=== PATIENT | female | born 1930 | race Caucasian/White ===

== ENCOUNTER 2021-07-02 10:21 | Inpatient (IN) | payer MEDICARE, MEDICAID, OTHER ==
[2021-07-02] MEDS ORDERED: Sodium Chloride 0.9% 2.5 ML Syringe FLUSH PRN ×2 (10:32→16:22)
[2021-07-02] MEDS ORDERED: Sodium Chloride 0.9% 10 ML Syringe FLUSH PRN ×2 (10:32→16:22)
[2021-07-02] MEDS ORDERED: Acetaminophen 1,000 MG in Premix Bag 1 BAG IV ONE (10:51)
[2021-07-02] MEDS ORDERED: Sodium Chloride 0.9% 1,000 ML IV ONE (10:52)
[2021-07-02] MEDS ORDERED: methylPREDNISolone Sodium Succinate 125 MG/2 ML SDV IVPUSH ONE (10:53)
[2021-07-02] MEDS ORDERED: Albuterol/Ipratropium 3.0-0.5 MG/3 ML Neb Soln NEB ONE (10:53)
[2021-07-02] MEDS ORDERED: Acetaminophen 650 MG Supp RECTAL ONE (11:14)
[2021-07-02 11:24] LABS: CARBON DIOXIDE,CO2 29.2 mmol/L (21.0-32.0)
[2021-07-02] MEDS ORDERED: Ampicillin/Sulbactam Na 3 GM in Sodium Chloride 0.9% 100 ML IV ONE ×2 (11:32→11:39)
[2021-07-02 11:33] LABS: CORONAVIRUS COVID-19 NAA POSITIVE (NEGATIVE); INFLUENZA A NAA NEGATIVE (NEGATIVE); INFLUENZA B NAA NEGATIVE (NEGATIVE)
[2021-07-02] MEDS ORDERED: Azithromycin 500 MG in Sodium Chloride 0.9% 250 ML IV SCH (11:45)
[2021-07-02] MEDS ORDERED: Iopamidol 755 MG/ML 500 ML Multipack Bottle IVPUSH ONE (13:04)
[2021-07-02] MEDS ORDERED: Albuterol/Ipratropium 3.0-0.5 MG/3 ML Neb Soln NEB PRN (16:21)
[2021-07-02] MEDS ORDERED: Docusate Sodium 100 MG Cap PO PRN (16:30)
[2021-07-02] MEDS ORDERED: Benzonatate 100 MG Cap PO PRN (16:30)
[2021-07-02] MEDS ORDERED: guaiFENesin 100 MG/5 ML Soln 5 ML UD Cup PO PRN (16:30)
[2021-07-02] MEDS ORDERED: Ondansetron 4 MG/2 ML SDV IVPUSH PRN (16:30)
[2021-07-02] MEDS ORDERED: REMDESIVIR 200 MG in Sodium Chloride 0.9% 250 ML IV ONE (16:45)
[2021-07-02] MEDS: Heparin Sodium 5,000 Units/ML Vial SUBCUT SCH (17:15)
[2021-07-02] MEDS: cefTRIAXone 1 GM in Sodium Chloride 0.9% 50 ML IV SCH (18:24)
[2021-07-03] MEDS: Heparin Sodium 5,000 Units/ML Vial SUBCUT SCH ×3 (00:45→17:10)
[2021-07-03 06:53] LABS: CARBON DIOXIDE,CO2 25.8 mmol/L (21.0-32.0); POTASSIUM,K 3.5 mmol/L (3.5-5.1)
[2021-07-03] MEDS: Pantoprazole 40 MG Tab.CR PO SCH (06:57)
[2021-07-03] MEDS: Azithromycin 500 MG in Sodium Chloride 0.9% 250 ML IV SCH (09:03)
[2021-07-03] MEDS: Dexamethasone 4 MG Tab PO SCH (09:04)
[2021-07-03] MEDS: Acetaminophen 325 MG Tab PO PRN (11:35)
[2021-07-03] MEDS: Fluticasone/Umeclidin/Vilanter [Trelegy Ellipta 200-62.5-25] INH SCH (15:08)
[2021-07-03] MEDS: REMDESIVIR 100 MG in Sodium Chloride 0.9% 100 ML IV SCH (17:09)
[2021-07-03] MEDS: cefTRIAXone 1 GM in Sodium Chloride 0.9% 50 ML IV SCH (18:11)
[2021-07-04] MEDS: Heparin Sodium 5,000 Units/ML Vial SUBCUT SCH ×3 (01:00→17:05)
[2021-07-04] MEDS: Pantoprazole 40 MG Tab.CR PO SCH ×2 (06:15→06:34)
[2021-07-04 06:37] LABS: BLOOD UREA NITROGEN,BUN 31 mg/dL (7.0-18.0); CARBON DIOXIDE,CO2 25.1 mmol/L (21.0-32.0); CHLORIDE,CL 104 mmol/L (98-107); GLUCOSE RANDOM 85 mg/dL (74-106); POTASSIUM,K 4.2 mmol/L (3.5-5.1); SODIUM,NA 139 mmol/L (136-145)
[2021-07-04] MEDS: Dexamethasone 4 MG Tab PO SCH (08:34)
[2021-07-04] MEDS: Fluticasone/Umeclidin/Vilanter [Trelegy Ellipta 200-62.5-25] INH SCH (08:36)
[2021-07-04] MEDS: Azithromycin 500 MG in Sodium Chloride 0.9% 250 ML IV SCH (08:37)
[2021-07-04] MEDS ORDERED: TRELEGY ELLIPTA INH SCH (09:00)
[2021-07-04] MEDS: Acetaminophen 325 MG Tab PO PRN (10:58)
[2021-07-04] MEDS: REMDESIVIR 100 MG in Sodium Chloride 0.9% 100 ML IV SCH (17:05)
[2021-07-04] MEDS: cefTRIAXone 1 GM in Sodium Chloride 0.9% 50 ML IV SCH (18:24)
[2021-07-05] MEDS: Heparin Sodium 5,000 Units/ML Vial SUBCUT SCH ×3 (00:50→17:17)
[2021-07-05] MEDS: Pantoprazole 40 MG Tab.CR PO SCH ×2 (06:11→07:41)
[2021-07-05 07:16] LABS: BLOOD UREA NITROGEN,BUN 27 mg/dL (7.0-18.0); CARBON DIOXIDE,CO2 20.8 mmol/L (21.0-32.0); CHLORIDE,CL 103 mmol/L (98-107); GLUCOSE RANDOM 72 mg/dL (74-106); POTASSIUM,K 4.1 mmol/L (3.5-5.1); SODIUM,NA 137 mmol/L (136-145)
[2021-07-05] MEDS: Dexamethasone 4 MG Tab PO SCH (08:54)
[2021-07-05] MEDS: Azithromycin 500 MG in Sodium Chloride 0.9% 250 ML IV SCH (08:54)
[2021-07-05] MEDS: Fluticasone/Umeclidin/Vilanter [Trelegy Ellipta 200-62.5-25] INH SCH (08:55)
[2021-07-05] MEDS: REMDESIVIR 100 MG in Sodium Chloride 0.9% 100 ML IV SCH (17:17)
[2021-07-05] MEDS: cefTRIAXone 1 GM in Sodium Chloride 0.9% 50 ML IV SCH (18:43)
[2021-07-06] MEDS: Heparin Sodium 5,000 Units/ML Vial SUBCUT SCH ×3 (00:12→16:25)
[2021-07-06] MEDS: Pantoprazole 40 MG Tab.CR PO SCH ×2 (06:05→06:35)
[2021-07-06 06:44] LABS: CARBON DIOXIDE,CO2 25.6 mmol/L (21.0-32.0); POTASSIUM,K 3.7 mmol/L (3.5-5.1)
[2021-07-06] MEDS: Dexamethasone 4 MG Tab PO SCH (08:51)
[2021-07-06] MEDS: Fluticasone/Umeclidin/Vilanter [Trelegy Ellipta 200-62.5-25] INH SCH (08:53)
[2021-07-06] MEDS ORDERED: Azithromycin 250 MG Tab PO SCH (09:00)
[2021-07-06] MEDS: REMDESIVIR 100 MG in Sodium Chloride 0.9% 100 ML IV SCH (16:25)
[2021-07-06] MEDS: cefTRIAXone 1 GM in Sodium Chloride 0.9% 50 ML IV SCH (18:38)
[2021-07-07] MEDS: Heparin Sodium 5,000 Units/ML Vial SUBCUT SCH ×3 (00:25→17:12)
[2021-07-07] MEDS: Pantoprazole 40 MG Tab.CR PO SCH ×2 (06:06→08:31)
[2021-07-07 07:21] LABS: BLOOD UREA NITROGEN,BUN 22 mg/dL (7.0-18.0); CARBON DIOXIDE,CO2 23.7 mmol/L (21.0-32.0); CHLORIDE,CL 103 mmol/L (98-107); GLUCOSE RANDOM 81 mg/dL (74-106); POTASSIUM,K 3.7 mmol/L (3.5-5.1); SODIUM,NA 137 mmol/L (136-145)
[2021-07-07] MEDS: Dexamethasone 4 MG Tab PO SCH (08:26)
[2021-07-07] MEDS: Fluticasone/Umeclidin/Vilanter [Trelegy Ellipta 200-62.5-25] INH SCH (08:38)
[2021-07-08] MEDS: Heparin Sodium 5,000 Units/ML Vial SUBCUT SCH ×4 (00:10→23:54)
[2021-07-08] MEDS: Pantoprazole 40 MG Tab.CR PO SCH ×2 (06:12→07:32)
[2021-07-08] MEDS: Dexamethasone 4 MG Tab PO SCH (09:11)
[2021-07-08] MEDS: Fluticasone/Umeclidin/Vilanter [Trelegy Ellipta 200-62.5-25] INH SCH (09:12)
[2021-07-09 06:24] LABS: CARBON DIOXIDE,CO2 29.5 mmol/L (21.0-32.0)
[2021-07-09] MEDS: Pantoprazole 40 MG Tab.CR PO SCH (06:39)
[2021-07-09] MEDS: Heparin Sodium 5,000 Units/ML Vial SUBCUT SCH ×3 (08:07→23:35)
[2021-07-09] MEDS: Dexamethasone 4 MG Tab PO SCH (08:08)
[2021-07-09] MEDS: Fluticasone/Umeclidin/Vilanter [Trelegy Ellipta 200-62.5-25] INH SCH (08:09)
[2021-07-10] MEDS: Pantoprazole 40 MG Tab.CR PO SCH (06:43)
[2021-07-10] MEDS: Dexamethasone 4 MG Tab PO SCH (08:26)
[2021-07-10] MEDS: Fluticasone/Umeclidin/Vilanter [Trelegy Ellipta 200-62.5-25] INH SCH (08:27)
[2021-07-10] MEDS: Heparin Sodium 5,000 Units/ML Vial SUBCUT SCH ×2 (08:27→16:42)
[2021-07-11] MEDS: Heparin Sodium 5,000 Units/ML Vial SUBCUT SCH ×3 (00:09→16:01)
[2021-07-11] MEDS: Pantoprazole 40 MG Tab.CR PO SCH (06:36)
[2021-07-11] MEDS: Acetaminophen 325 MG Tab PO PRN (08:37)
[2021-07-11] MEDS: Dexamethasone 4 MG Tab PO SCH (08:38)
[2021-07-11] MEDS: Fluticasone/Umeclidin/Vilanter [Trelegy Ellipta 200-62.5-25] INH SCH (09:29)
[2021-07-12] MEDS: Heparin Sodium 5,000 Units/ML Vial SUBCUT SCH ×3 (00:59→16:53)
[2021-07-12] MEDS: Pantoprazole 40 MG Tab.CR PO SCH ×2 (06:07→07:14)
[2021-07-12] MEDS: Fluticasone/Umeclidin/Vilanter [Trelegy Ellipta 200-62.5-25] INH SCH (08:54)
[2021-07-13] MEDS: Heparin Sodium 5,000 Units/ML Vial SUBCUT SCH ×3 (00:21→17:11)
[2021-07-13] MEDS: Pantoprazole 40 MG Tab.CR PO SCH (06:31)
[2021-07-13] MEDS: Fluticasone/Umeclidin/Vilanter [Trelegy Ellipta 200-62.5-25] INH SCH (08:43)
[2021-07-14] MEDS: Heparin Sodium 5,000 Units/ML Vial SUBCUT SCH ×2 (00:30→08:15)
[2021-07-14] MEDS: Pantoprazole 40 MG Tab.CR PO SCH ×2 (06:08→07:52)
[2021-07-14] MEDS: Fluticasone/Umeclidin/Vilanter [Trelegy Ellipta 200-62.5-25] INH SCH (08:20)
[2021-07-14] MEDS: Acetaminophen 325 MG Tab PO PRN (09:46)
== END 2021-07-14 12:30 | disposition home or self-care (01) | DRG 177 ==
LOC: MW.ED 10:21 → MW.MS 15:14
PROVIDERS: ADMIT Student in an Organized Health Care Education/Training Program; ATTEND Student in an Organized Health Care Education/Training Program
PROC: XW033E5 Introduction of Remdesivir Anti-infective into Peripheral Vein, Percutaneous Approach, New Technology Group 5 (ICD-10-PCS; principal; 2021-07-02)
PROC: 3E0DX3Z Introduction of Anti-inflammatory into Mouth and Pharynx, External Approach (ICD-10-PCS; 2021-07-03)
DX: U07.1 COVID-19 (principal); J96.01 Acute respiratory failure with hypoxia; R09.02 Hypoxemia; R41.0 Disorientation, unspecified; J12.82 Pneumonia due to coronavirus disease 2019; J44.0 Chronic obstructive pulmonary disease with (acute) lower respiratory infection; E03.9 Hypothyroidism, unspecified; F03.90 Unspecified dementia, unspecified severity, without behavioral disturbance, psychotic disturbance, mood disturbance, and anxiety; Z66 Do not resuscitate; R77.8 Other specified abnormalities of plasma proteins; E05.90 Thyrotoxicosis, unspecified without thyrotoxic crisis or storm
CPT/HCPCS: 0240U; 36415; 70450; 71045; 71275; 80053; 81003; 83605; 83690; 83735; 83880; 84100; 84145; 84484; 85025; 87040; 93005; 96365; 96367; 96375; 97161; 99285; 93010; 99284; A9270-GY; J0295; J0456; J0696; J1644; J2405; J2930; J7030; J7050; J7620-GY; J8540; Q9967

== ENCOUNTER 2021-09-19 20:12 | Emergency (ER) | payer MEDICARE, MEDICAID, OTHER ==
[2021-09-19] MEDS ORDERED: Morphine 2 MG/ML SYRINGE IM ONE (20:53)
[2021-09-19] MEDS ORDERED: Ondansetron 4 MG Tab.DIS PO ONE (20:53)
[2021-09-19 22:00] LABS: BLOOD UREA NITROGEN,BUN 13 mg/dL (7.0-18.0); CARBON DIOXIDE,CO2 25.9 mmol/L (21.0-32.0); CHLORIDE,CL 92 mmol/L (98-107); GLUCOSE RANDOM 119 mg/dL (74-106); POTASSIUM,K 4.1 mmol/L (3.5-5.1); SODIUM,NA 128 mmol/L (136-145)
[2021-09-19] MEDS ORDERED: LORazepam 2 MG/ML SDV IVPUSH STA (22:21)
[2021-09-20] MEDS ORDERED: Sodium Chloride 0.9% 1,000 ML IV SCH (01:00)
== END 2021-09-20 02:52 ==
LOC: MW.ED 20:12
DX: S72.142A Displaced intertrochanteric fracture of left femur, initial encounter for closed fracture (principal); M97.02XA Periprosthetic fracture around internal prosthetic left hip joint, initial encounter; E87.1 Hypo-osmolality and hyponatremia; E03.9 Hypothyroidism, unspecified; J44.9 Chronic obstructive pulmonary disease, unspecified; Z20.822 Contact with and (suspected) exposure to COVID-19; X58.XXXA Exposure to other specified factors, initial encounter
CPT/HCPCS: 36415; 70450; 71045; 72125; 73502; 80053; 81003; 84484; 85025; 93005; 96372; 96374; 99285; A9270; J2060; J2270; U0002